=== PATIENT | female | born 1940 | race Caucasian/White ===

== ENCOUNTER 2018-09-12 12:50 | Inpatient (IN) | payer MEDICARE, MEDICAID ==
[~2018-09-12] VITALS: Ht 157.5 cm; Wt 67.6 kg
[2018-09-12] MEDS ORDERED: MORPHINE SULFATE 4 MG/ML CPJ (NOT FOR IM USE) IV STA (15:33)
[2018-09-12] MEDS ORDERED: ONDANSETRON HCL 4MG/2ML INJ IV STA (15:33)
[2018-09-12] MEDS ORDERED: SODIUM CHLORIDE 0.9% 1,000 ML IV ONE (15:33)
[2018-09-12 16:02] LABS: CLARITY URINE TURBID (CLEAR); COLOR URINE RED (YELLOW); KETONES URINE 1+ (NEGATIVE); LEUKOCYTE ESTERASE URINE 2+ (NEGATIVE); NITRITE URINE POSITIVE (NEGATIVE); OCCULT BLOOD URINE 3+ (NEGATIVE); PROTEIN URINE 2+ (NEGATIVE); SPECIFIC GRAVITY URINE 1.016 (1.005-1.030)
[2018-09-12 16:04] LABS: BASOPHILS % 0.5 % (0.0-2.0); HEMATOCRIT. 32.7 % (36.0-48.0); HEMOGLOBIN. 10.9 g/dL (12.0-16.0); LYMPHOCYTES % 7.4 % (20.0-50.0); MEAN CORPUSCULAR HEMOGLOBIN 30.9 pg (28.0-32.0); MEAN CORPUSCULAR VOLUME 92.7 fL (81.0-99.0); MEAN PLATELET VOLUME 10.1 fl (7.4-10.4); MONOCYTES % 3.3 % (2.0-8.0); NEUTROPHILS % 88.8 % (40.0-76.0); PLATELET 204 x1000/uL (130-400); RED BLOOD CELL COUNT 3.52 mill/uL (4.2-5.4)
[2018-09-12 16:07] LABS: CHLORIDE 111 mEq/L (98-107)
[2018-09-12 16:09] LABS: PROTHROMBIN TIME 10.5 sec (9.6-11.0)
[2018-09-12] MEDS ORDERED: CEFTRIAXONE 1 G PREMIX 50 ML IV ONE (17:15)
[2018-09-12] MEDS ORDERED: MORPHINE SULFATE 2 MG/ML CPJ (NOT FOR IM USE) IV PRN (18:45)
[2018-09-12] MEDS ORDERED: HYDROCODONE/ACETAMINOPHEN 5/325MG TABLET PO PRN (21:45)
[2018-09-12] MEDS ORDERED: LORAZEPAM 2MG/ML CPJ IV PRN (21:45)
[2018-09-12] MEDS ORDERED: ONDANSETRON HCL 4MG/2ML INJ IV PRN (21:45)
[2018-09-12] MEDS ORDERED: CLONIDINE 0.1MG TABLET PO PRN (21:45)
[2018-09-12] MEDS ORDERED: IPRATROPIUM/ALBUTEROL 0.5-3(2.5)MG/3ML NEB INH PRN (21:45)
[2018-09-12 23:13] LABS: CREATINE KINASE 109 IU/L (26-192)
[2018-09-12 23:14] LABS: CREATINE KINASE MB FRACTION < 1.0 ng/mL (0.5-3.6)
[2018-09-13] VITALS (7 sets, daily range): BP systolic 92–134; BP diastolic 37–58
[2018-09-13] MEDS: SODIUM CHLORIDE 0.9% 1,000 ML IV SCH ×2 (02:29→12:03)
[2018-09-13 06:38] LABS: BASOPHILS % 0.7 % (0.0-2.0); EOSINOPHILS % 1.1 % (0.0-5.0); HEMOGLOBIN. 9.8 g/dL (12.0-16.0); LYMPHOCYTES % 27.7 % (20.0-50.0); MEAN CORPUSCULAR HEMOGLOBIN 31.6 pg (28.0-32.0); MEAN CORPUSCULAR VOLUME 93.4 fL (81.0-99.0); MEAN PLATELET VOLUME 10.4 fl (7.4-10.4); MONOCYTES % 7.6 % (2.0-8.0); NEUTROPHILS % 62.9 % (40.0-76.0); PLATELET 163 x1000/uL (130-400)
[2018-09-13 06:54] LABS: CHLORIDE 114 mEq/L (98-107)
[2018-09-13 07:03] LABS: CREATINE KINASE 196 IU/L (26-192)
[2018-09-13 07:05] LABS: CREATINE KINASE MB FRACTION 2.7 ng/mL (0.5-3.6)
[2018-09-13] MEDS ORDERED: DEXTROSE 50% WATER 50ML SYRINGE IV PRN (07:15)
[2018-09-13] MEDS: INSULIN LISPRO 100 UNITS/ML SUBCUT SCH ×4 (07:15→21:00)
[2018-09-13] MEDS ORDERED: PNEUMOCOCCAL 23-VAL P-SAC VAC 0.5 ML IM ONE (08:00)
[2018-09-13] MEDS ORDERED: LEVOFLOXACIN 500MG PREMIX 100 ML IV NR (08:00)
[2018-09-13] MEDS: THIAMINE HCL 100MG TABLET PO SCH (09:01)
[2018-09-13] MEDS: ASPIRIN 81MG EC TABLET PO SCH (09:02)
[2018-09-13] MEDS: FOLIC ACID 1MG TABLET PO SCH (09:02)
[2018-09-13] MEDS: ENOXAPARIN 30MG/0.3ML SYR SUBCUT SCH (09:02)
[2018-09-13] MEDS: BLOOD SUGAR DIAGNOSTIC STRIP TEST SCH ×3 (12:02→21:10)
[2018-09-13] MEDS ORDERED: MORPHINE SULFATE 2 MG/ML CPJ (NOT FOR IM USE) IV PRN (17:45)
[2018-09-14] VITALS: BP 118/68
[2018-09-14] MEDS: SODIUM CHLORIDE 0.9% 1,000 ML IV SCH ×3 (01:14→17:00)
[2018-09-14 04:00] VITALS: BP 126/47
[2018-09-14] MEDS: BLOOD SUGAR DIAGNOSTIC STRIP TEST SCH ×3 (06:15→17:43)
[2018-09-14] MEDS: INSULIN LISPRO 100 UNITS/ML SUBCUT SCH ×3 (06:16→17:15)
[2018-09-14 08:00] VITALS: BP 109/46
[2018-09-14] MEDS ORDERED: LEVOFLOXACIN 250MG PREMIX 50 ML IV SCH (08:00)
[2018-09-14 08:48] LABS: BASOPHILS % 0.8 % (0.0-2.0); EOSINOPHILS % 3.1 % (0.0-5.0); HEMATOCRIT. 27.7 % (36.0-48.0); HEMOGLOBIN. 9.2 g/dL (12.0-16.0); LYMPHOCYTES % 24.6 % (20.0-50.0); MEAN CORPUSCULAR HEMOGLOBIN 31.2 pg (28.0-32.0); MEAN PLATELET VOLUME 10.2 fl (7.4-10.4); MONOCYTES % 6.8 % (2.0-8.0); NEUTROPHILS % 64.7 % (40.0-76.0); PLATELET 150 x1000/uL (130-400); RED BLOOD CELL COUNT 2.95 mill/uL (4.2-5.4); RED CELL DISTRIBUTION WIDTH 14.2 % (11.6-14.6)
[2018-09-14] MEDS: THIAMINE HCL 100MG TABLET PO SCH (08:54)
[2018-09-14] MEDS: FOLIC ACID 1MG TABLET PO SCH (08:54)
[2018-09-14] MEDS: ASPIRIN 81MG EC TABLET PO SCH (09:00)
[2018-09-14] MEDS: ENOXAPARIN 30MG/0.3ML SYR SUBCUT SCH (09:00)
[2018-09-14] MEDS ORDERED: ROCURONIUM BROMIDE 10MG/ML VIAL 5ML IV ONE (12:17)
[2018-09-14] MEDS ORDERED: FENTANYL CITRATE/PF 50MCG/ML 2ML VIAL ONE (12:17)
[2018-09-14] MEDS ORDERED: NEOSTIGMINE METHYLSULFATE 1MG/ML 10 ML VIAL ONE (12:17)
[2018-09-14] MEDS ORDERED: LIDOCAINE HCL/PF 1% 10 MG/ML 5ML VIAL ONE (12:18)
[2018-09-14] MEDS ORDERED: EPHEDRINE SULFATE 50MG/ML VIAL ONE (12:18)
[2018-09-14] MEDS ORDERED: PROPOFOL 200MG/20ML VIAL IV ONE (12:18)
[2018-09-14] MEDS ORDERED: ONDANSETRON HCL 4MG/2ML INJ ONE (12:18)
[2018-09-14] MEDS ORDERED: SODIUM CHLORIDE 0.9% 10ML VIAL ONE (12:18)
[2018-09-14] MEDS ORDERED: SUCCINYLCHOLINE CHLORIDE 200MG/10ML IV ONE (12:18)
[2018-09-14] MEDS ORDERED: PHENYLEPHRINE HCL 10 MG/ML 1ML (IV VIAL) IV ONE (12:18)
[2018-09-14] MEDS ORDERED: METOCLOPRAMIDE HCL 10MG/2ML VIAL ONE (12:18)
[2018-09-14] MEDS ORDERED: MIDAZOLAM HCL 2 MG/2 ML VIAL ONE (12:18)
[2018-09-14] MEDS ORDERED: GLYCOPYRROLATE 0.2 MG/ML 2ML VIAL ONE (12:18)
[2018-09-14] MEDS ORDERED: HYDROMORPHONE HCL/PF 2MG/ML CPJ IV PRN (13:45)
[2018-09-14] MEDS ORDERED: MEPERIDINE HCL/PF 25MG/ML CPJ IV PRN (13:45)
[2018-09-14] MEDS ORDERED: ONDANSETRON HCL 4MG/2ML INJ IV PRN (13:45)
[2018-09-14] MEDS ORDERED: MORPHINE SULFATE 2 MG/ML CPJ (NOT FOR IM USE) IV PRN (13:45)
[2018-09-14] MEDS ORDERED: SODIUM CHLORIDE 0.9% 1,000 ML IV ONE (14:00)
[2018-09-14 18:01] VITALS: BP 126/48
[2018-09-14] MEDS ORDERED: ENOXAPARIN 40MG/0.4ML SYR SUBCUT SCH (21:00)
[2018-09-30] MEDS ORDERED: LEVO500T2 MT (10:50)
== END 2018-09-14 19:20 | disposition home or self-care (01) | DRG 853 ==
LOC: ER 12:50 → 6EST 17:32 → ENRESERV 20:01 → SUPCPDRO 21:41 → 5WST 09-13 02:09
PROVIDERS: ADMIT Internal Medicine Nephrology; ATTEND Internal Medicine Nephrology
PROC: 0T788DZ Dilation of Bilateral Ureters with Intraluminal Device, Via Natural or Artificial Opening Endoscopic (ICD-10-PCS; principal; 2018-09-14)
PROC: 0TF68ZZ Fragmentation in Right Ureter, Via Natural or Artificial Opening Endoscopic (ICD-10-PCS; 2018-09-14)
PROC: BT141ZZ Fluoroscopy of Kidneys, Ureters and Bladder using Low Osmolar Contrast (ICD-10-PCS; 2018-09-14)
DX: A41.9 Sepsis, unspecified organism (principal); N17.0 Acute kidney failure with tubular necrosis; N13.6 Pyonephrosis; D64.9 Anemia, unspecified; E11.9 Type 2 diabetes mellitus without complications; E87.8 Other disorders of electrolyte and fluid balance, not elsewhere classified; N21.0 Calculus in bladder; Z87.442 Personal history of urinary calculi; Z90.710 Acquired absence of both cervix and uterus; Z90.49 Acquired absence of other specified parts of digestive tract
CPT/HCPCS: 36415; 74176; 74430; 80048; 82550; 82553; 82962; 84484; 88300; 90732; 93005; 96374; 96375; 99285; C1758; C1769; C1893; C2617; J0330; J0696; J1650; J1956; J2250; J2270; J2370; J2405; J2704; J2710; J2765; J3010; J3490; J7030

== ENCOUNTER 2018-09-28 07:28 | Inpatient (IN) | payer MEDICARE, MEDICAID ==
[~2018-09-28] VITALS: Ht 157.5 cm; Wt 75.7 kg
[2018-09-28] MEDS ORDERED: ACETAMINOPHEN 325MG TABLET PO STA (10:39)
[2018-09-28] MEDS ORDERED: SODIUM CHLORIDE 0.9% 1,000 ML IV ONE (10:39)
[2018-09-28] MEDS ORDERED: ONDANSETRON HCL 4MG/2ML INJ IV ONE (10:45)
[2018-09-28 11:00] LABS: CLARITY URINE CLOUDY (CLEAR); COLOR URINE ORANGE (YELLOW); KETONES URINE NEGATIVE (NEGATIVE); LEUKOCYTE ESTERASE URINE 3+ (NEGATIVE); NITRITE URINE NEGATIVE (NEGATIVE); OCCULT BLOOD URINE 3+ (NEGATIVE); PH URINE 5.5 (4.5-8.0); PROTEIN URINE 2+ (NEGATIVE); SPECIFIC GRAVITY URINE 1.014 (1.005-1.030); UROBILINOGEN URINE 0.2 E.U./dL (0.2-1.0)
[2018-09-28 11:27] LABS: BASOPHILS % 0.5 % (0.0-2.0); EOSINOPHILS % 1.7 % (0.0-5.0); HEMOGLOBIN. 11.1 g/dL (12.0-16.0); LYMPHOCYTES % 22.3 % (20.0-50.0); MEAN CORPUSCULAR HEMOGLOBIN 30.6 pg (28.0-32.0); MEAN CORPUSCULAR VOLUME 93.7 fL (81.0-99.0); MEAN PLATELET VOLUME 9.5 fl (7.4-10.4); MONOCYTES % 5.8 % (2.0-8.0); NEUTROPHILS % 69.7 % (40.0-76.0); PLATELET 236 x1000/uL (130-400); RED BLOOD CELL COUNT 3.62 mill/uL (4.2-5.4); RED CELL DISTRIBUTION WIDTH 13.9 % (11.6-14.6)
[2018-09-28 11:32] LABS: CHLORIDE 112 mEq/L (98-107)
[2018-09-28 11:45] LABS: PROTHROMBIN TIME 10.1 sec (9.6-11.0)
[2018-09-28] MEDS ORDERED: PIPERACILLIN/TAZ 3.375G PREMIX 50 ML IV ONE (12:00)
[2018-09-28] MEDS ORDERED: SODIUM CHLORIDE 0.9% 1000ML BAG (SEPSIS BOLUS) IV ONE (12:00)
[2018-09-28] MEDS ORDERED: MAGNESIUM/ALUMINUM HYDROXIDE/SIMETHICONE 30ML UDC PO PRN (15:00)
[2018-09-28] MEDS ORDERED: ACETAMINOPHEN 650MG SUPP PR PRN (15:00)
[2018-09-28] MEDS ORDERED: DOCUSATE SODIUM 100MG CAPSULE PO PRN (15:00)
[2018-09-28] MEDS ORDERED: GUAIFENESIN 200MG/10ML SUGAR FREE UDC PO PRN (15:00)
[2018-09-28] MEDS ORDERED: DIPHENHYDRAMINE 50MG/ML VIAL IV PRN (15:00)
[2018-09-28] MEDS ORDERED: NA PHOS,M-B/NA PHOS,DI-BA ENEMA 118ML PR PRN (15:00)
[2018-09-28] MEDS ORDERED: IPRATROPIUM/ALBUTEROL 0.5-3(2.5)MG/3ML NEB INH PRN (15:00)
[2018-09-28] MEDS ORDERED: LEVOFLOXACIN 500MG PREMIX 100 ML IV SCH ×2 (15:00→17:00)
[2018-09-28] MEDS ORDERED: ACETAMINOPHEN 650MG/20.3ML UDC GT PRN (15:00)
[2018-09-28] MEDS ORDERED: ACETAMINOPHEN 325MG TABLET PO PRN (15:00)
[2018-09-28] MEDS ORDERED: CLONIDINE 0.1MG TABLET PO PRN (15:00)
[2018-09-28] MEDS ORDERED: FAMO20TA8 PO (15:57)
[2018-09-28] MEDS ORDERED: VALS40TA11 PO (15:57)
[2018-09-28] MEDS ORDERED: ASPI-1158 MT (15:57)
[2018-09-28] MEDS ORDERED: SIMV10TA6 MT (15:57)
[2018-09-28] MEDS ORDERED: HYDR25TA MT (15:57)
[2018-09-28] MEDS ORDERED: METO10TA3 PO (15:57)
[2018-09-28 16:00] VITALS: BP 122/60
[2018-09-28 16:30] VITALS: BP 122/66
[2018-09-28] MEDS: ENOXAPARIN 40MG/0.4ML SYR SUBCUT SCH (17:05)
[2018-09-28] MEDS: SODIUM CHLORIDE 0.45% 1,000 ML IV SCH (17:05)
[2018-09-28] MEDS: HYDROCODONE/ACETAMINOPHEN 5/325MG TABLET PO PRN (19:39)
[2018-09-28] MEDS: LOSARTAN POTASSIUM 25 MG TABLET PO SCH (19:39)
[2018-09-28 20:00] VITALS: BP 127/54
[2018-09-28] MEDS: ATORVASTATIN CALCIUM 10MG TABLET PO SCH (21:18)
[2018-09-28] MEDS: SODIUM CHLORIDE 0.9% INJ 3ML FLUSH IVF SCH (21:18)
[2018-09-29] VITALS: BP 130/39
[2018-09-29 04:00] VITALS: BP 94/39
[2018-09-29] MEDS: SODIUM CHLORIDE 0.9% INJ 3ML FLUSH IVF SCH ×2 (05:09→13:05)
[2018-09-29] MEDS ORDERED: DEXTROSE 50% WATER 50ML SYRINGE IV PRN (06:30)
[2018-09-29] MEDS: BLOOD SUGAR DIAGNOSTIC STRIP TEST SCH ×4 (06:32→20:13)
[2018-09-29] MEDS: INSULIN LISPRO 100 UNITS/ML SUBCUT SCH ×4 (06:33→20:18)
[2018-09-29 07:41] LABS: EOSINOPHILS % 4.4 % (0.0-5.0); HEMATOCRIT. 28.4 % (36.0-48.0); LYMPHOCYTES % 40.6 % (20.0-50.0); MEAN CORPUSCULAR HEMOGLOBIN 31.1 pg (28.0-32.0); MEAN CORPUSCULAR VOLUME 94.6 fL (81.0-99.0); MEAN PLATELET VOLUME 10.1 fl (7.4-10.4); MONOCYTES % 7.2 % (2.0-8.0); NEUTROPHILS % 46.8 % (40.0-76.0); PLATELET 184 x1000/uL (130-400)
[2018-09-29 07:45] LABS: CHLORIDE 113 mEq/L (98-107)
[2018-09-29 07:52] LABS: LDL CHOLESTEROL 85 mg/dL (5-100)
[2018-09-29 07:53] LABS: HDL CHOLESTEROL 34 mg/dL (40-59)
[2018-09-29 07:55] LABS: HEMOGLOBIN. 9.3 g/dL (12.0-16.0)
[2018-09-29 08:00] VITALS: BP 141/65
[2018-09-29] MEDS: LOSARTAN POTASSIUM 25 MG TABLET PO SCH (08:32)
[2018-09-29] MEDS: ASPIRIN 81MG TABLET PO SCH (08:32)
[2018-09-29] MEDS: HYDROCHLOROTHIAZIDE 25MG TABLET PO SCH (08:33)
[2018-09-29] MEDS: ENOXAPARIN 40MG/0.4ML SYR SUBCUT SCH (08:37)
[2018-09-29] MEDS: HYDROCODONE/ACETAMINOPHEN 5/325MG TABLET PO PRN ×2 (08:38→20:04)
[2018-09-29] MEDS: SODIUM CHLORIDE 0.45% 1,000 ML IV SCH (08:39)
[2018-09-29] MEDS ORDERED: LEVOFLOXACIN 250MG PREMIX 50 ML IV SCH (11:00)
[2018-09-29 12:00] VITALS: BP 132/79
[2018-09-29] MEDS: ONDANSETRON HCL 4MG/2ML INJ IV PRN ×2 (12:48→20:03)
[2018-09-29 16:00] VITALS: BP 137/82
[2018-09-29 20:00] VITALS: BP 124/51
[2018-09-29] MEDS: ATORVASTATIN CALCIUM 10MG TABLET PO SCH (20:04)
[2018-09-30] VITALS: BP 137/54
[2018-09-30] MEDS: ONDANSETRON HCL 4MG/2ML INJ IV PRN ×2 (03:44→11:42)
[2018-09-30] MEDS: SODIUM CHLORIDE 0.45% 1,000 ML IV SCH (03:46)
[2018-09-30 04:00] VITALS: BP 151/72
[2018-09-30] MEDS: INSULIN LISPRO 100 UNITS/ML SUBCUT SCH ×2 (07:50→12:26)
[2018-09-30 08:00] VITALS: BP 127/82
[2018-09-30] MEDS: BLOOD SUGAR DIAGNOSTIC STRIP TEST SCH ×2 (08:07→12:20)
[2018-09-30] MEDS: ASPIRIN 81MG TABLET PO SCH (09:00)
[2018-09-30] MEDS: LOSARTAN POTASSIUM 25 MG TABLET PO SCH (09:01)
[2018-09-30] MEDS: HYDROCHLOROTHIAZIDE 25MG TABLET PO SCH (09:01)
[2018-09-30] MEDS: ENOXAPARIN 40MG/0.4ML SYR SUBCUT SCH (09:02)
[2018-09-30] MEDS ORDERED: LEVO500T2 MT (10:50)
[2018-09-30 11:55] VITALS: BP 145/51
[2018-09-30 12:00] VITALS: BP 145/51
== END 2018-09-30 13:20 | disposition home or self-care (01) | DRG 689 ==
LOC: ER 07:28 → 6EST 12:18 → ENRESERV 14:55
PROVIDERS: ADMIT Family Medicine; ATTEND Family Medicine
DX: N10 Acute pyelonephritis (principal); G93.41 Metabolic encephalopathy; G40.89 Other seizures; E11.9 Type 2 diabetes mellitus without complications; F10.10 Alcohol abuse, uncomplicated; I10 Essential (primary) hypertension; Z59.0 Homelessness; Z87.442 Personal history of urinary calculi; Z90.710 Acquired absence of both cervix and uterus; Z90.49 Acquired absence of other specified parts of digestive tract
CPT/HCPCS: 36415; 74176; 80061; 82962; 83605; 96361; 96365; 96375; 99285; J1650; J1815; J1956; J2405; J2543; J7030

== ENCOUNTER 2021-09-14 06:02 | Day surgery (SDC) | payer MEDICARE, MEDICAID ==
[~2021-09-14] VITALS: Ht 157.5 cm; Wt 69.4 kg
[~2021-09-14 06:02] MED LIST: CITA20TA75 PO; FAMO20TA8 PO; HYDR25TA MT; INSNPH SUBCUT; METO10TA3 PO; SIMV10TA97 MT; VALS40TA11 PO
[2021-09-14] MEDS ORDERED: SODIUM CHLORIDE 0.9% 1,000 ML IV SCH (07:30)
[2021-09-14] MEDS ORDERED: LIDOCAINE HCL 1% 50ML VIAL (10MG/ML) ONE (09:01)
[2021-09-14] MEDS ORDERED: DEXAMETHASONE 4MG/ML 1ML VIAL ONE (09:01)
[2021-09-14] MEDS ORDERED: ONDANSETRON HCL 4MG/2ML INJ ONE (09:01)
[2021-09-14] MEDS ORDERED: PROPOFOL 200MG/20ML VIAL IV ONE (09:01)
[2021-09-14] MEDS ORDERED: MIDAZOLAM HCL 2 MG/2 ML VIAL ONE (09:02)
[2021-09-14] MEDS ORDERED: FENTANYL CITRATE/PF 50MCG/ML 2ML VIAL ONE (09:02)
[2021-09-14] MEDS ORDERED: GLYCOPYRROLATE 0.2 MG/ML 2ML VIAL ONE (09:42)
[2021-09-14] MEDS ORDERED: LABETALOL 5MG/ML SYR 20 MG/4 ML SYRINGE IV PRN (09:45)
[2021-09-14] MEDS ORDERED: ONDANSETRON HCL 4MG/2ML INJ IV PRN (09:45)
[2021-09-14] MEDS ORDERED: MEPERIDINE HCL/PF 25MG/ML CPJ IV PRN (09:45)
[2021-09-14] MEDS ORDERED: HYDROMORPHONE HCL/PF 2MG/ML CPJ IV PRN (09:45)
[2021-09-14] MEDS ORDERED: ASPI-1497 PO (10:15)
[2021-09-14] MEDS ORDERED: ALEN70TA3 PO (10:15)
[2021-09-14] MEDS ORDERED: CYAN-33 PO (10:23)
== END 2021-09-14 12:05 | disposition home or self-care (01) ==
LOC: OR 06:02
PROVIDERS: ATTEND Specialist
DX: N13.2 Hydronephrosis with renal and ureteral calculous obstruction (principal); I10 Essential (primary) hypertension; E11.9 Type 2 diabetes mellitus without complications; E78.00 Pure hypercholesterolemia, unspecified; K21.9 Gastro-esophageal reflux disease without esophagitis; Z79.82 Long term (current) use of aspirin; Z79.84 Long term (current) use of oral hypoglycemic drugs; Z79.899 Other long term (current) drug therapy; Z98.890 Other specified postprocedural states; Z20.822 Contact with and (suspected) exposure to COVID-19
CPT/HCPCS: 52356; 74430; 82962; 87426; C1769; C2617; C9803; J1100; J2250; J2405; J2704; J3010; J3490; J7030; 76000